=== PATIENT | male | born 1935 | race Caucasian/White ===

== ENCOUNTER 2016-07-16 06:22 | Day surgery (SDC) | END 2016-07-16 17:25 | disposition home or self-care (01) | DX: I25.10 Atherosclerotic heart disease of native coronary artery without angina pectoris (principal); I50.9 Heart failure, unspecified; R94.39 Abnormal result of other cardiovascular function study | CPT/HCPCS: 80048; 85025; 85610; 85730; 93005; 93458; C1769; C1887; C1894; J1644; J2250; J3010; Q9967 ==